=== PATIENT | female | born 1985 | race Asian ===

== ENCOUNTER 2016-09-29 11:10 | Emergency (ER) | payer OTHER ==
[2016-09-29 11:25] VITALS: O2SAT 98
--- NOTE | 2016-09-29 11:41 | EDPHY ---
H & P Stated Complaint: dx strep on abx feeling worse Source: Patient - Personal History LMP (Females 10-55): 15-21 Days Ago Current Tetanus/Diphtheria Vaccine: Yes - Medical/Surgical History Hx Asthma: No Hx Chronic Respiratory Disease: No Hx Diabetes: No Hx Cardiac Disease: No Hx Renal Disease: No Hx Cirrhosis: No Hx Alcoholism: No Hx HIV/AIDS: No Hx Splenectomy or Spleen Trauma: No Other PMH: denies - Social History Smoking Status: Never smoked HPI/ROS: CHIEF COMPLAINT: Sore throat, recent diagnosis of strep HISTORY OF PRESENT ILLNESS: Patient complains of persistent sore throat. This started a little over 2 weeks ago. When she was in [place] for a trip she was seen at an urgent care there and diagnosed with strep pharyngitis. She was prescribed penicillin. She is taking as prescribed. She reports no improvement. The pain is primarily when coughing. His last severe at rest. Minimally painful with swallowing. She has no difficulty swallowing but she feels that her throat is scratchy. Questionable fever. No chills. No nausea or vomiting. No diarrhea. No chest pain or shortness of breath. The cough is pleuritic and dry. No urinary complaints. No neck pain or stiffness. No headache. No other associated complaints or modifying factors. REVIEW OF SYSTEMS: Ten systems reviewed and are negative unless otherwise noted in the HPI EXAMINATION General Appearance: Alert, no distress Head: normocephalic, atraumatic Eyes: Pupils equal and round, no conjunctival pallor or injection. EOMs intact. ENT, Mouth: Mucous membranes moist. Uvula midline. There is posterior erythema. There is no edema. No exudate. No evidence of abscess. No trismus. Neck: Normal inspection, supple, non-tender. No nuchal rigidity or meningismus. Respiratory: Lungs are clear to auscultation. No wheezing, rhonchi or crackles. Cardiovascular: Regular rate and rhythm. No murmur. Pulses intact distally. Gastrointestinal: Abdomen is soft and nontender Back: non-tender, no bony abnormalities Neurological: A&O, nonfocal, normal gait Skin: Warm and dry, no rash Extremities: Nontender, no pedal edema Psychiatric: Mood and affect normal DIFFERENTIAL DIAGNOSES: Including but not limited to strep pharyngitis, viral pharyngitis, mononucleosis , influenza, viral illness MDM: 11:40 a.m. Persistent sore throat. Patient was diagnosed with strep pharyngitis nearly 2 weeks ago. She has nearly completed her penicillin without any improvement. Has a mild cough as well. Vital signs are stable. No evidence of peritonsillar abscess. I have ordered laboratory studies and repeat strep test. 1:25 p.m. Laboratory studies are all within normal limits. Negative mono and strep test. She has received IV fluid and IV Decadron. I suspect this is viral pharyngitis and/or bronchitis. No evidence of pneumonia by laboratory studies, auscultation or history. Discharged home with continued anti-inflammatories [id number] for the next 5 days and stop. Increase fluid intake. Follow up with primary care physician. Return to the ER for worsening symptoms. Patient is comfortable this plan and discharged home stable condition. SUPERVISION: This patient was independently evaluated without direct examination by the attending physician. Case was discussed with attending physician. (Vijay Lima) Constitutional: Initial Vital Signs Temperature (C) 37.1 C 09/29/16 11:23 Heart Rate 71 09/29/16 11:23 Respiratory Rate 16 09/29/16 11:23 Blood Pressure 99/63 L 09/29/16 11:23 O2 Sat (%) 98 09/29/16 11:23 O2 Delivery Mode Room Air Allergies/Adverse Reactions: No Known Allergies Allergy (Unverified 09/29/16 11:22) Home Medications: Medication Instructions Recorded Penicillin VK 09/29/16 Medical Decision Making ED Course/Re-evaluation: I did not see this patient while she was in the emergency department. However her care was discussed with the PA while the patient was in the department. I agree with treatment plan and management (Ricardo Delacruz) - Data Points Laboratory Results: Laboratory Results 09/29/16 11:50 09/29/16 11:50 09/29/16 09/29/16 09/29/16 Unknown 11:50 11:50 WBC RBC Hgb Hct MCV MCH MCHC RDW Plt Count MPV Neut % (Auto) Lymph % (Auto) Gem % (Auto) Eos % (Auto) Baso % (Auto) Nucleat RBC Rel Count Absolute Neuts (auto) Absolute Lymphs (auto) Absolute Monos (auto) Absolute Eos (auto) Absolute Basos (auto) Absolute Nucleated RBC Immature Gran % Immature Gran # Sodium Potassium Chloride Carbon Dioxide Anion Gap BUN Creatinine Estimated GFR Glucose Calcium Lipase Beta HCG, Qual Monoscreen Influenza Typ A,B (DFA) NEGATIVE FOR FLU (NEGATIVE) Group A Strep Screen NEGATIVE (NEGATIVE) Group A Strep DNA Pending 09/29/16 09/29/16 09/29/16 11:50 11:50 11:50 WBC 5.14 10^3/uL 10^3/uL (3.80-9.50) RBC 4.89 10^6/uL 10^6/uL (4.18-5.33) Hgb 14.7 g/dL g/dL (12.6-16.3) Hct 43.8 % % (38.0-47.0) MCV 89.6 fL fL (81.5-99.8) MCH 30.1 pg pg (27.9-34.1) MCHC 33.6 g/dL g/dL (32.4-36.7) RDW 12.5 % % (11.5-15.2) Plt Count 262 10^3/uL 10^3/uL (150-400) MPV 9.1 fL fL (8.7-11.7) Neut % (Auto) 63.8 % % (39.3-74.2) Lymph % (Auto) 23.0 % % (15.0-45.0) Gem % (Auto) 10.1 % % (4.5-13.0) Eos % (Auto) 2.5 % % (0.6-7.6) Baso % (Auto) 0.6 % % (0.3-1.7) Nucleat RBC Rel Count 0.0 % % (0.0-0.2) Absolute Neuts (auto) 3.28 10^3/uL 10^3/uL (1.70-6.50) Absolute Lymphs (auto) 1.18 10^3/uL 10^3/uL (1.00-3.00) Absolute Monos (auto) 0.52 10^3/uL 10^3/uL (0.30-0.80) Absolute Eos (auto) 0.13 10^3/uL 10^3/uL (0.03-0.40) Absolute Basos (auto) 0.03 10^3/uL 10^3/uL (0.02-0.10) Absolute Nucleated RBC 0.00 10^3/uL 10^3/uL (0-0.01) Immature Gran % 0.0 % % (0.0-1.1) Immature Gran # 0.00 10^3/uL 10^3/uL (0.00-0.10) Sodium 141 mEq/L mEq/L (134-144) Potassium 4.1 mEq/L mEq/L (3.5-5.2) Chloride 107 mEq/L mEq/L (97-110) Carbon Dioxide 22 mEq/l mEq/l (22-31) Anion Gap 12 mEq/L mEq/L (8-16) BUN 9 mg/dL mg/dL (7-23) Creatinine 0.6 mg/dL mg/dL (0.6-1.0) Estimated GFR > 60 Glucose 80 mg/dL mg/dL (70-100) Calcium 9.1 mg/dL mg/dL (8.5-10.4) Lipase 132.0 IU/L IU/L (23-300) Beta HCG, Qual NEGATIVE Monoscreen NEGATIVE (NEGATIVE) Influenza Typ A,B (DFA) Group A Strep Screen Group A Strep DNA Medications Given: Discontinued Medications Dexamethasone (Decadron Injection) 10 mg IVP EDNOW ONE Stop: 09/29/16 12:19 Last Admin: 09/29/16 12:25 Dose: 10 mg Sodium Chloride (Ns) 1,000 mls @ 0 mls/hr IV ONCE ONE PRN Reason: Wide Open Stop: 09/29/16 11:54 Last Admin: 09/29/16 11:47 Dose: 1,000 mls Departure - Departure Disposition: Home, Routine, Self-Care Clinical Impression: Acute pharyngitis Qualifiers: Pharyngitis/tonsillitis etiology: other specified organisms Qualified Code(s): J02.8 - Acute pharyngitis due to other specified organisms Condition: Good Instructions: Pharyngitis (ED) Additional Instructions: Aleve twice daily for the next 5 days. Increase fluid intake. Follow up with primary care physician Referrals: NONE *PRIMARY CARE P,. [Primary Care Provider] - As per Instructions Lior Mcgovern MD [Medical Doctor] - As per Instructions
[2016-09-29] MEDS ORDERED: NS 1,000 ML IV ONE (11:53)
[2016-09-29 12:04] LABS: ADD DIFF? NO; ADD MORPH? NO; ADD SCAN? NO; ATYPICAL LYMPHOCYTE FLAG 20 (0-99); FRAGMENT RBC FLAG 0 (0-99); HEMATOCRIT 43.8 % (38.0-47.0); HEMOGLOBIN 14.7 g/dL (12.6-16.3); LEFT SHIFT FLG 0 (0-99); LIPEMIA HEMOLYSIS FLAG 80 (0-99); MEAN CELL HEMOGLOBIN 30.1 pg (27.9-34.1); MEAN CELL HEMOGLOBIN CONCENTR. 33.6 g/dL (32.4-36.7); MEAN CELL VOLUME 89.6 fL (81.5-99.8); MEAN PLATELET VOLUME 9.1 fL (8.7-11.7); PLATELET CLUMPS FLAG 0 (0-99); PLATELET COUNT 262 10^3/uL (150-400); RED BLOOD CELL COUNT 4.89 10^6/uL (4.18-5.33); RED CELL DISTRIBUTION WIDTH 12.5 % (11.5-15.2)
[2016-09-29 12:17] LABS: ANION GAP 12 mEq/L (8-16); CALCIUM 9.1 mg/dL (8.5-10.4); CARBON DIOXIDE 22 mEq/l (22-31); CHLORIDE 107 mEq/L (97-110); CREATININE 0.6 mg/dL (0.6-1.0); GLOMERULAR FILTRATION RATE > 60; GLUCOSE 80 mg/dL (70-100); POTASSIUM 4.1 mEq/L (3.5-5.2); SODIUM 141 mEq/L (134-144)
[2016-09-29 12:18] LABS: BHCG-QUALITATIVE NEGATIVE
[2016-09-29] MEDS ORDERED: DEXAMETHASONE 10 MG/ML VIAL IVP ONE (12:18)
[2016-09-29 12:19] LABS: MONO TEST NEGATIVE (NEGATIVE)
[2016-09-29 13:44] VITALS: BP 104/72; PULSE 76; RESP 20; TEMP 98.4
== END 2016-09-29 13:43 | disposition home or self-care (01) ==
DX: J02.8 Acute pharyngitis due to other specified organisms (principal); B97.89 Other viral agents as the cause of diseases classified elsewhere
CPT/HCPCS: 96374